=== PATIENT | female | born 1945 | race Caucasian/White ===

== ENCOUNTER 2016-07-03 10:29 | Outpatient (CLI) | payer OTHER ==
--- NOTE | 2016-07-03 11:17 | DIAGNOSTIC IMAGING REPORT ---
PROCEDURE: MG BILATERAL SCREENING W/CAD INDICATION: Screening. History of surgery for left breast carcinoma. TECHNIQUE: Bilateral CC and MLO digital views. COMPARISON: Compared to 06/30/2015, 06/21/2014, 06/14/2013, and 12/11/2012. FINDINGS: Computer-aided detection applied. Moderately dense with a few dystrophic calcifications. There is stable postoperative changes in the lateral left breast with parenchymal scarring and surgical clips. No change. IMPRESSION: 1. Postoperative changes of the lateral left breast. 2. Otherwise negative mammogram. RESULT CODE: 2- Benign finding(s). A. A negative report should not delay biopsy if a dominant or clinically suspicious mass is present. 10-15% of cancers are not identified by x-ray. B. A negative report may reinforce clinical impression. C. Adenosis and dense breasts may obscure an underlying neoplasm. D. False positive reports average 6-10%. E.. A yearly screening mammogram is recommended. A reminder letter will be scheduled.
== END 2016-07-03 23:00 ==
LOC: MAM SRH 10:29
DX: Z12.31 Encounter for screening mammogram for malignant neoplasm of breast (principal); Z85.3 Personal history of malignant neoplasm of breast